=== PATIENT | male | born 1965 | race African-American/Black ===

== ENCOUNTER 2017-12-01 14:05 | Observation (INO) ==
[2017-12-01] MEDS ORDERED: 0.9 % Sodium Chloride 1,000 ML IVC ONE (14:12)
--- NOTE | 2017-12-01 14:14 | Emergency Department Note ---
Disposition Clinical Impression: Acute renal insufficiency, Generalized weakness, Near syncope Hypotension Qualifiers: Hypotension type: hypotension due to drug Qualified Code(s): I95.2 - Hypotension due to drugs Disposition: Admitted As Inpatient Condition: Fair Weakness HPI - General Chief complaint: ED Dizziness Stated complaint: dizziness Time Seen by Provider: 12/01/17 14:06 Source: patient, EMS Mode of arrival: EMS Limitations: no limitations Nursing Notes Reviewed: Yes Vital Signs Reviewed: Yes - History of Present Illness HPI Narrative: Patient has been sent to emergency Department from his heading up machine operator's office, Dr. Adams. Dr. Adams had called to advise that this patient's blood pressure was low and was 60/40 in the office. He reported he had a syncopal episode yesterday without injury. An office EKG was performed which showed no change from his previous LVH. This is per verbal report of Dr. Adams. States he had no symptoms other than weakness and he needed to come here for further evaluation and possible IV fluids. Patient arrives to our emergency department indicating that he was told that his blood pressure was low. He does report dizziness with sitting or standing. He was denying current diaphoresis or shortness of breath. He did say that he's been having chest pain "when I exert myself" for the last 3 -4 days. This pain will radiate to his back. He has not had a feeling of palpitations. He does get sweaty and short of breath when he has the chest pain. He denies nausea, vomiting, diarrhea or any bloody or black stool. He states he has been having chronic abdominal trouble for more than 6 months with no change now. He relates he did have a decrease in blood pressure medicines a month ago because of lower blood pressure. He is not sure what changes were made to his medicines. He also indicates that he is admitted to [facility] about 3 weeks ago for pneumonia and discharged on November 16. He is currently not on an antibiotic and he denies current cough, fevers or chills. He has not been having orthopnea or leg swelling. He states he feels well but weak. Pt Subjective Complaint: generalized weakness/fatigue, other (Chest pain) Onset (ago): week(s) Duration: intermittent, gradually worsening Location: generalized Migration: none Pain Severity: moderate If pain, quality: aching Improves with: rest Worsens with: movement, exertion Associated symptoms: Reports: chest pain, diaphoresis, loss of appetite, shortness of breath, syncope. Denies: confusion, dark stools, dysuria, easy bruising, fever/chills, headaches, nausea/vomiting, myalgias, rash - Related Data Home Medications Medication Instructions Recorded Confirmed ALPRAZolam [Xanax 0.5 MG Tablet] 0.5 mg PO BID PRN 09/11/16 08/11/17 Allopurinol [Zyloprim] 100 mg PO DAILY 09/11/16 08/11/17 Aspirin [Ecotrin] 325 mg PO DAILY 09/11/16 08/11/17 Furosemide [Lasix] 80 mg PO BID 09/11/16 08/11/17 Pravastatin Sodium [Pravachol] 40 mg PO HS 09/11/16 08/11/17 Tamsulosin HCl [Flomax] 0.4 mg PO DAILY 09/11/16 08/11/17 Metoprolol [Lopressor] 50 mg PO BID 07/01/17 08/11/17 Insulin Glargine,Hum.rec.anlog 40 units SQ HS 07/02/17 08/11/17 [Lantus Solostar] Insulin ASPART [NovoLOG] 0 unit SQ TID PRN 08/11/17 08/11/17 Previous Rx's Medication Instructions Recorded cloNIDine HCl [Clonidine HCl] 0.2 mg PO BID #60 tab 09/12/16 Potassium Chloride [K-Tab ER] 20 meq PO BID #0 07/04/17 Sennosides/Docusate Sodium [Senna 1 each PO BID #60 tab 07/04/17 Plus] amLODIPine [Norvasc] 10 mg PO DAILY tab 07/06/17 Docusate [Colace] 100 mg PO BID #30 capsule 07/13/17 Oxycodone HCl/Acetaminophen 1 each PO Q6H PRN #20 07/13/17 [Percocet 10-325 mg Tablet] Minoxidil 5 mg PO DAILY #60 tab 08/12/17 Polyethylene Glycol 3350 [MiraLAX] 17 gm PO DAILY #30 powd.pack 08/12/17 Allergies Allergy/AdvReac Type Severity Reaction Status Date / Time No Known Allergies Allergy Verified 07/13/17 14:19 All systems ED: reviewed and negative except as stated. Past Medical History - Past Medical History Attestation: Yes The following information was validated with the patient. Source: patient, old records reviewed, obtained from family, nursing notes reviewed Medical history: Reports: CHF, CVA, diabetes, hypertension, renal disease Surgical history: Reports: no surgical history Psychiatric history: Reports: depression - Social History Smoking Status: Never smoker Smokeless Tobacco Status: No Alcohol use: Reports: none Drug use: Reports: none Physical Exam - General Limitations: no limitations General appearance: alert, in no apparent distress - Head Head exam: atraumatic, normocephalic, normal inspection - Eye Eye exam: Present: normal appearance, PERRL, EOMI. Absent: scleral icterus, conjunctival injection - ENT ENT exam: normal exam, normal oropharynx, mucous membranes moist - Neck Neck exam: Present: normal inspection, full ROM, trachea midline - Chest Chest inspection: Present: normal inspection, symmetric chest wall rise - Respiratory Respiratory exam: Present: normal lung sounds bilaterally. Absent: respiratory distress, wheezes, prolonged expiratory phase - Cardiovascular Cardiovascular exam: Present: regular rate, normal rhythm, normal heart sounds. Absent: tachycardia - Abdominal Exam Abdominal exam: Present: soft, Non-Tender, normal bowel sounds. Absent: tenderness, distention, guarding, rebound, rigidity - Extremities Exam Extremities exam: Present: normal inspection, full ROM, normal capillary refill. Absent: tenderness, pedal edema, calf tenderness - Expanded Lower Extremity Exam Neurovascular/Tendon exam: Present: normal capillary refill. Absent: motor deficit, sensory deficit, tendon deficit Gait: not tested/not observed - Back Exam Back exam: Present: normal inspection, full ROM. Absent: tenderness - Neurological Exam Neurological exam: Present: alert, oriented X3 - Psychiatric Psychiatric exam: Present: normal affect, normal mood. Absent: agitated, anxious - Skin Skin exam: Present: warm, dry, intact, normal color. Absent: cyanosis, diaphoresis, pallor Course Course Narrative: 1500: Care is discussed with the patient and friend in the room. Appears he has some acute on chronic renal insufficiency and this is likely migraine with his multiple medicines to give him his lassitude, weakness and hypotension. His EKG is at baseline and his troponin is negative. He does not have evidence for other metabolic derangement or anemia. I discussed care with Dr. Mendez who feels comfortable with observation on the floor and continuation some IV fluids. We're still clarifying his medicines and Dr. Mendez will order medications upon admission. Verbal orders have been obtained for the patient's observation. Vital Signs Temperature 97.8 F 12/01/17 14:08 Pulse Rate 89 12/01/17 14:08 Respiratory Rate 18 12/01/17 14:08 Blood Pressure 89/53 12/01/17 14:08 O2 Sat by Pulse Oximetry 99 12/01/17 14:08 Temperature 97.8 F 12/01/17 14:08 Pulse Rate 89 12/01/17 14:08 Respiratory Rate 18 12/01/17 14:08 Blood Pressure 89/53 12/01/17 14:08 O2 Sat by Pulse Oximetry 99 12/01/17 14:08 Oxygen Delivery Oxygen Delivery Room Air Weakness - Differential Diagnosis Differential Diagnosis: Likely: acute myocardial infarction, anemia, hypoglycemia, dehydration, medication effect, metabolic - Medical Records Medical records reviewed: Yes I reviewed the patient's medical records. - Lab Data Lab results reviewed: Yes I reviewed the patient's lab results. Result diagrams: 12/01/17 14:25 12/01/17 14:25 Lab Results 12/01/17 12/01/17 12/01/17 Range/Units 14:25 14:25 14:25 WBC 7.6 (4.3-11.1) K/mcL RBC 4.19 (4.19-5.50) M/mcL Hgb 11.7 L (12.9-16.9) g/dL Hct 33.9 L (37.5-50.1) % MCV 80.9 L (83.0-100.0) fL MCH 27.9 L (28.0-33.3) pg MCHC 34.5 (31.6-35.5) g/dL RDW 14.6 H (11.5-14.5) % Plt Count 226 (140-400) K/mcL MPV 11.1 (9.4-12.4) fL Immature Gran % 0.3 (0-4) % Seg Neutrophils % 51.7 % Lymphocytes % 37.6 % Monocytes % 7.5 % Eosinophils % 2.1 % Basophils % 0.8 % Neutrophils # 3.9 (1.6-8.9) K/mcL Lymphocytes # 2.9 (0.6-4.6) K/mcL Monocytes # 0.6 (0.0-1.3) K/mcL Eosinophils # 0.2 (0.0-0.6) K/mcL Basophils # 0.1 (0.0-0.2) K/mcL PT 12.0 (9.4-12.1) Seconds INR 1.1 Sodium 139 (136-145) mEq/L Potassium 3.6 (3.5-5.1) mEq/L Chloride 105 (98-107) mEq/L Carbon Dioxide 27 (23-29) mEq/L BUN 26 H (6-20) mg/dL Creatinine 1.95 H (0.70-1.30) mg/dL Est GFR ( Amer) 44 L (> 60) Est GFR (Non-Af Amer) 37 L (> 60) BUN/Creatinine Ratio 13 (6-26) Glucose 223 H (70-105) mg/dL Calculated Osmolality 300 (280-300) Calcium 9.3 (8.6-10.3) mg/dL Total Bilirubin 0.4 (0.3-1.0) mg/dL AST 14 (13-39) Units/L ALT 22 (7-52) Units/L Alkaline Phosphatase 74 (34-104) Units/L Troponin I (< 0.04) ng/mL B-Natriuretic Peptide (Less than 100) pg/mL Serum Total Protein 6.1 L (6.4-8.9) g/dL Albumin 3.6 (3.5-5.7) g/dL Globulin 2.5 (2.4-3.5) g/dL Albumin/Globulin Ratio 1.4 (1.1-2.2) 12/01/17 12/01/17 Range/Units 14:25 14:25 WBC (4.3-11.1) K/mcL RBC (4.19-5.50) M/mcL Hgb (12.9-16.9) g/dL Hct (37.5-50.1) % MCV (83.0-100.0) fL MCH (28.0-33.3) pg MCHC (31.6-35.5) g/dL RDW (11.5-14.5) % Plt Count (140-400) K/mcL MPV (9.4-12.4) fL Immature Gran % (0-4) % Seg Neutrophils % % Lymphocytes % % Monocytes % % Eosinophils % % Basophils % % Neutrophils # (1.6-8.9) K/mcL Lymphocytes # (0.6-4.6) K/mcL Monocytes # (0.0-1.3) K/mcL Eosinophils # (0.0-0.6) K/mcL Basophils # (0.0-0.2) K/mcL PT (9.4-12.1) Seconds INR Sodium (136-145) mEq/L Potassium (3.5-5.1) mEq/L Chloride (98-107) mEq/L Carbon Dioxide (23-29) mEq/L BUN (6-20) mg/dL Creatinine (0.70-1.30) mg/dL Est GFR ( Amer) (> 60) Est GFR (Non-Af Amer) (> 60) BUN/Creatinine Ratio (6-26) Glucose (70-105) mg/dL Calculated Osmolality (280-300) Calcium (8.6-10.3) mg/dL Total Bilirubin (0.3-1.0) mg/dL AST (13-39) Units/L ALT (7-52) Units/L Alkaline Phosphatase (34-104) Units/L Troponin I < 0.03 (< 0.04) ng/mL B-Natriuretic Peptide 12 (Less than 100) pg/mL Serum Total Protein (6.4-8.9) g/dL Albumin (3.5-5.7) g/dL Globulin (2.4-3.5) g/dL Albumin/Globulin Ratio (1.1-2.2) - Radiology Data Radiology results reviewed: Yes I reviewed the patient's radiology results. Single view chest x-ray is performed. This does not demonstrate evidence for infiltrate, effusion, pneumothorax, foreign body or heart failure. The cardiac silhouette is normal. I do not see abnormality to the osseous structures of the chest. This is on my interpretation. - EKG Data EKG attestation: Yes I reviewed and interpreted this EKG. EKG shows normal: sinus rhythm, axis, intervals, QRS complexes, ST-T waves Rate: normal (86) Voltage: c/w LVH Interpretation: no acute changes, LVH
[2017-12-01] MEDS ORDERED: 0.9 % Sodium Chloride 1,000 ML IVC SCH ×2 (14:15→15:10)
[2017-12-01 14:34] LABS: Basophils # 0.1 K/mcL (0.0-0.2); Basophils % 0.8 %; Eosinophils # 0.2 K/mcL (0.0-0.6); Eosinophils % 2.1 %; Hematocrit 33.9 % (37.5-50.1); Hemoglobin 11.7 g/dL (12.9-16.9); Immature Granulocytes % 0.3 % (0-4); Lymphocytes # 2.9 K/mcL (0.6-4.6); Lymphocytes % 37.6 %; Mean Corpuscular HGB Conc 34.5 g/dL (31.6-35.5); Mean Corpuscular Hemoglobin 27.9 pg (28.0-33.3); Mean Corpuscular Volume 80.9 fL (83.0-100.0); Mean Platelet Volume 11.1 fL (9.4-12.4); Monocytes # 0.6 K/mcL (0.0-1.3); Monocytes % 7.5 %; Neutrophils # 3.9 K/mcL (1.6-8.9); Platelet Count 226 K/mcL (140-400); Red Blood Count 4.19 M/mcL (4.19-5.50); Red Cell Distribution Width 14.6 % (11.5-14.5); Segmented Neutrophils % 51.7 %
[2017-12-01 14:38] LABS: INR 1.1
[2017-12-01 14:48] LABS: Albumin 3.6 g/dL (3.5-5.7); Albumin/Globulin Ratio 1.4 (1.1-2.2); Bilirubin,Total 0.4 mg/dL (0.3-1.0); Calcium 9.3 mg/dL (8.6-10.3); Globulin 2.5 g/dL (2.4-3.5); Potassium 3.6 mEq/L (3.5-5.1); Total Protein 6.1 g/dL (6.4-8.9)
[2017-12-01] MEDS ORDERED: *HR* Dextrose 50 % in Water (Syg) 50 ML SYRINGE IVP PRN (15:10)
[2017-12-01] MEDS ORDERED: Naloxone 0.4 MG/ML INJ IVP PRN (15:10)
[2017-12-01] MEDS ORDERED: D5% in Water 1,000 ML IVC PRN (15:10)
[2017-12-01] MEDS ORDERED: Dextrose Gel 15 GM/37.5 ML TUBE PO PRN ×2 (15:10)
[2017-12-01] MEDS: Insulin LISPRO 300 UNITS/3 ML VIAL SQ SCH (17:30)
--- NOTE | 2017-12-01 20:18 | Internal Med History&Physical ---
Date of Encounter: 12/01/17 Time of Encounter: 19:30 Assessment and Plan (1) Hypotension Current visit: Yes Status: Acute Probably secondary to medication use with superimposed volume depletion. He has been ordered IV fluids and withholding all antihypertensive medications. Will check orthostatic vital signs in a.m. Qualifiers: Hypotension type: hypotension due to drug Qualified Code(s): I95.2 - Hypotension due to drugs (2) Weight loss Current visit: Yes Status: Acute Etiology not obvious. Will order hemoglobin A1c TSH, CEA and CA-19-9 (3) Microcytic anemia Current visit: Yes Status: Acute We will order anemia testing in a.m. Suspect iron deficiency (4) Uncontrolled diabetes mellitus Current visit: No Status: Chronic Hemoglobin A1c was 11.4% on 08/11/2017. We will recheck in a.m. Qualifiers: Diabetes mellitus type: type 2 Diabetes mellitus complication status: with kidney complications Diabetes mellitus complication detail: with chronic kidney disease Diabetes mellitus intermediate insulin use: with intermediate use Chronic kidney disease stage: stage 3 (moderate) Qualified Code(s): E11.22 - Type 2 diabetes mellitus with diabetic chronic kidney disease; E11.65 - Type 2 diabetes mellitus with hyperglycemia; Z79.4 - intermodal truck driver (current) use of insulin ; E11.65 - Type 2 diabetes mellitus with hyperglycemia; E11.65 - Type 2 diabetes mellitus with hyperglycemia; E11.65 - Type 2 diabetes mellitus with hyperglycemia; N18.3 - Chronic kidney disease, stage 3 (moderate); N18.3 - Chronic kidney disease, stage 3 (moderate); Z79.4 - care home (current) use of insulin; Z79.4 - intermodal truck driver (current) use of insulin; Z79.4 - intermodal truck driver (current ) use of insulin (5) Hypertension Current visit: No Status: Chronic Will hold antihypertensive medications secondary to low blood pressure at present. Qualifiers: Hypertension type: essential hypertension Qualified Code(s): I10 - Essential (primary) hypertension (6) CKD (chronic kidney disease) stage 3, GFR 30-59 ml/min Current visit: Yes Status: Acute Will give IV fluids and withholding hypertensive medications including diuretics. Recheck labs in a.m. Internal Medicine - H&P: HPI Chief complaint: Hypotension Admitted From: Emergency Dept Plans for Post Hospital Care: Home History of present illness: Mr. Schrader is a 52 year old male who was sent to emergency room from Dr. Adams's office after he had blood pressure 60/40 at the office visit. He had a syncopal episode yesterday without injury. He has had orthostatic symptoms on arising from a seated position for approximately 2 weeks. He was evaluated in emergency room and found to have microcytic anemia and azotemia with hypotension. He was admitted to [facility] floor for ongoing care needs. Cardiovascular history is significant for hypertension. He denies VT and had a stress test in 2016. He does not recall when his last heart catheter was done. He claims a diagnosis of heart failure. BN peptide in emergency room was 12. An echocardiogram 07/05/2017 showed LVEF 65%. There was concentric LVH with the interventricular septum and posterior wall thickness measurements of 1.60 and 1.50 cm respectively. There was mild to moderate mitral regurgitation and trace tricuspid regurgitation. The E/A ratio was 0.8. He states he gets occasional chest pain on exertion. He denies DVT or pulmonary embolus. Past Med Surg Social Fam HX - Past Medical History Medical history: CHF, CVA, diabetes, hypertension, renal disease Psychiatric history: depression - Past Surgical History Surgical History: no surgical history - Social History Smoking Status: Never smoker Smokeless Tobacco Status: No Alcohol use: none Drug use: none - Family History Maternal Grandfather Living Status: Hx Family Cancer: Yes (Mouth cancer) Hx Family Endocrine Disorder: Yes (DM) Father Living Status: Hx Family Cardiac Disorders: Yes (HTN) Hx Family Endocrine Disorder: Yes (DM) Internal Medicine - H&P: Meds ALPRAZolam [Xanax 0.5 MG Tablet] 0.5 mg PO HS 12/01/17 [History] Allopurinol [Zyloprim 100 MG] 100 mg PO DAILY 12/01/17 [History] Aromatic Cascara Fluid Extract [Cascara Sagrada] 450 mg PO HS PRN 12/01/17 [ History] Aspirin [Lo-Dose Aspirin EC] 81 mg PO DAILY 12/01/17 [History] Atorvastatin [Lipitor] 40 mg PO HS 12/01/17 [History] Bisacodyl [Dulcolax] 10 mg RC DAILY PRN 12/01/17 [History] Carvedilol [Coreg] 25 mg PO BID 12/01/17 [History] Furosemide [Lasix] 40 mg PO BID 12/01/17 [History] HydrOXYzine Pamoate [Vistaril] 25 - 50 mg PO Q8H PRN 12/01/17 [History] Insulin ASPART [NovoLOG] 10 unit SQ HS 12/01/17 [History] Insulin ASPART [NovoLOG] 10 unit SQ TIDWM 12/01/17 [History] Insulin Glargine [Lantus] 10 unit SQ HS 12/01/17 [History] Lisinopril [Zestril] 40 mg PO DAILY 12/01/17 [History] Magnesium Citrate [Citroma] 30 ml PO DAILY 12/01/17 [History] Metoclopramide [Reglan] 5 mg PO TID 12/01/17 [History] Minoxidil 2.5 mg PO BID 12/01/17 [History] Ondansetron HCl [Zofran] 4 mg PO Q8H PRN 12/01/17 [History] OxyCODONE/APAP 10/325 [Percocet 10/325 MG] 1 each PO Q6HR PRN 12/01/17 [History] Potassium Chloride [K-Tab ER] 40 meq PO BID 12/01/17 [History] Sucralfate [Carafate] 1 gm PO TID 12/01/17 [History] Tamsulosin [Flomax] 0.4 mg PO BID 12/01/17 [History] amLODIPine [Norvasc] 5 mg PO DAILY 12/01/17 [History] cloNIDine HCl [Clonidine HCl] 0.2 mg PO BID 12/01/17 [History] metFORMIN [Glucophage] 500 mg PO BIDWM 12/01/17 [History] 3 Allergy/AdvReac Type Severity Reaction Status Date / Time No Known Allergies Allergy Verified 07/13/17 14:19 All Systems PM: A 10-system review of systems was performed and is negative for pertinent findings except as documented above in the HPI. Review of systems: Gen.: His weight has decreased from 126.099 kg on 09/11/2016 to 77.564 kg on admission now. He states the weight loss was unintentional. Cardiovascular: As per history of present illness Respiratory: He smoked from age [age] up to 2 packs per day. He has not had PFTs and does not use home oxygen. Chest CT 08/10/2017 showed no acute pulmonary abnormality. GI: He had cholecystectomy July 2017. He reports diarrhea present for approximately 3 months. He has been diagnosed with diabetic gastroparesis a few weeks ago at [facility]. He reports no significant pathology other than gastroparesis was diagnosed on EGD at [facility]. Denies disorders of his liver or excuse pancreas. He reports colonoscopy September [address] October 2017 showed no significant pathology. His been diagnosed with diabetic gastroparesis. : He has chronic kidney disease and follows with Dr. Alonso. He has BPH. He denies other kidney or bladder disorders Neurologic: He claims he had stroke at age 40 but there is no permanent neurologic deficit. He denies seizures or other neurologic disorders. Endocrine: He was diagnosed with DM2 approximately age 45. Hemoglobin A1c was 11.4% on 08/11/2017. He does not check his blood sugars regularly at home. He has history of hyperlipidemia. He denies known thyroid disease Hematology/oncology: He had microcytic anemia for over a year on CBCs but he was unaware of this. He states he has used aspirin for approximately 5 years. He denies known internal malignancies. Psychiatric: He has history of anxiety but denies depression or other mental health issues Muscle skeletal: He has gout but denies other bone joint or muscle disorders. - Constitutional Vitals: Temp Pulse Resp BP Pulse Ox 97.6 F 90 17 92/65 100 12/01/17 15:48 12/01/17 15:48 12/01/17 15:48 12/01/17 15:48 12/01/17 15:48 Exam: Gen.: He is well-developed and well-nourished male lying in bed who appears in no severe distress at present time HEENT: Head is atraumatic and normocephalic. Eyes: EOMI. There is no sclerae icterus. Mouth: Mucosa is moist. Neck: Supple and nontender. There is no thyromegaly noted. Heart: Regular without murmurs gallops or ectopics Lungs: No wheezes or crackles are heard. Abdomen: He has bowel sounds present. There is mild tenderness right upper quadrant to deep palpation. No masses or guarding are noted. Extremities: There is no cyanosis edema or clubbing noted. Dorsalis pedis and posttibial pulses are 1-2 over 2 bilaterally. Neurologic: Mental status: He is talkative and a good historian. Cranial nerves : Smile is symmetric. Forehead wrinkles bilaterally. Tongue protrudes midline. EOMI. Motor: There is no pronator drift. Cerebellar: Finger to nose is intact bilaterally. Skin: Warm and dry Internal Med - H&P Results - Labs CBC & Chem 7: 12/01/17 14:25 12/01/17 14:25
[2017-12-01] MEDS: *HR* OxyCODONE/APAP 5/325 TABLET PO PRN (20:57)
[2017-12-01] MEDS: 0.45 % Sodium Chloride w/KCl 20 MEQ/1,000 ML MLS IVC SCH (21:01)
[2017-12-02] MEDS: *HR* OxyCODONE/APAP 5/325 TABLET PO PRN ×2 (02:21→08:10)
[2017-12-02 05:16] LABS: Basophils % 0.5 %; Eosinophils # 0.2 K/mcL (0.0-0.6); Eosinophils % 2.4 %; Hematocrit 31.5 % (37.5-50.1); Hemoglobin 10.8 g/dL (12.9-16.9); Immature Granulocytes % 0.3 % (0-4); Lymphocytes # 2.5 K/mcL (0.6-4.6); Lymphocytes % 33.2 %; Mean Corpuscular HGB Conc 34.3 g/dL (31.6-35.5); Mean Corpuscular Hemoglobin 27.6 pg (28.0-33.3); Mean Corpuscular Volume 80.6 fL (83.0-100.0); Mean Platelet Volume 11.8 fL (9.4-12.4); Monocytes # 0.5 K/mcL (0.0-1.3); Monocytes % 7.1 %; Neutrophils # 4.2 K/mcL (1.6-8.9); Platelet Count 223 K/mcL (140-400); Red Blood Count 3.91 M/mcL (4.19-5.50); Red Cell Distribution Width 14.6 % (11.5-14.5); Segmented Neutrophils % 56.5 %
[2017-12-02 05:34] LABS: Chol/HDL Ratio 2.7 (0-4.9); Magnesium 1.4 mg/dL (1.6-2.6); Uric Acid 6.9 mg/dL (2.3-7.6)
[2017-12-02 05:49] LABS: Thyroid Stimulating Hormone 0.393 mcIU/mL (0.340-5.600)
[2017-12-02] MEDS: Insulin LISPRO 300 UNITS/3 ML VIAL SQ SCH ×3 (08:04→16:37)
[2017-12-02] MEDS: 0.45 % Sodium Chloride w/KCl 20 MEQ/1,000 ML MLS IVC SCH (08:11)
[2017-12-02] MEDS: Simethicone 80 MG TAB.CHEW PO PRN ×3 (08:41→21:12)
[2017-12-02] MEDS ORDERED: Ondansetron 4 MG/2 ML VIAL IVP PRN (09:53)
--- NOTE | 2017-12-02 09:59 | Internal Med Progress Note ---
Date of Encounter: 12/02/17 Time of Encounter: 09:50 - Assessment and plan (1) Hypotension Current Visit: Yes Status: Acute Assessment and plan: December 02. Improved. Continue IV fluids and withholding antihypertensives. Qualifiers: Hypotension type: hypotension due to drug Qualified Code(s): I95.2 - Hypotension due to drugs (2) Weight loss Current Visit: Yes Status: Acute Assessment and plan: December 02. TSH was normal. Abdominal CT of 11/09/[address] on 2016 reviewed. No pathology indicating malignancy was seen. CA 19-9 and CEA have been ordered. (3) Microcytic anemia Current Visit: Yes Status: Acute Assessment and plan: December 02. Anemia testing pending. (4) Uncontrolled diabetes mellitus Current Visit: No Status: Chronic Assessment and plan: December 02. Hemoglobin A1c pending. 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 [facility] use Chronic kidney disease stage: stage 3 (moderate) Qualified Code(s): E11.22 - Type 2 diabetes mellitus with diabetic chronic kidney disease; E11.65 - Type 2 diabetes mellitus with hyperglycemia; Z79.4 - shelter (current) use of insulin ; E11.65 - Type 2 diabetes mellitus with hyperglycemia; E11.65 - Type 2 diabetes mellitus with hyperglycemia; E11.65 - Type 2 diabetes mellitus with hyperglycemia; N18.3 - Chronic kidney disease, stage 3 (moderate); N18.3 - Chronic kidney disease, stage 3 (moderate); Z79.4 - shelter (current) use of insulin; 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 Blood pressure now normal. Continue to withhold antihypertensives. Qualifiers: Hypertension type: essential hypertension Qualified Code(s): I10 - Essential (primary) hypertension (6) CKD (chronic kidney disease) stage 3, GFR 30-59 ml/min Current Visit: Yes Status: Acute Assessment and plan: December 02. Continue IV fluids and monitor renal indices. (7) Nausea Current Visit: Yes Status: Acute Assessment and plan: December 02. We will restart scheduled home dose of Reglan and give Zofran when necessary. (8) Hypomagnesemia Current Visit: Yes Status: Acute Assessment and plan: December 02. Will give magnesium oxide supplement and monitor labs. - Subjective Interval history: December 02. He complains of nausea but denies vomiting. - Constitutional Vitals: Temp Pulse Resp BP Pulse Ox 98.3 F 97 12 125/86 97 12/02/17 05:07 12/02/17 05:07 12/02/17 05:07 12/02/17 05:07 12/02/17 05:07 Exam: He is lying in bed and appears to be in no acute distress. His affect is overall cheerful. I reviewed his medications and lab results. Internal Medicine: Result - Labs CBC & Chem 7: 12/02/17 04:15 12/01/17 14:25 Labs: Short CBC 12/02/17 Range/Units 04:15 WBC 7.4 (4.3-11.1) K/mcL Hgb 10.8 L (12.9-16.9) g/dL Hct 31.5 L (37.5-50.1) % Plt Count 223 (140-400) K/mcL Neutrophils # 4.2 (1.6-8.9) K/mcL - ABG Interpretation ABG results: PT/INR, D-dimer PT 12.0 Seconds (9.4-12.1) 12/01/17 14:25 Consult Discharge Plan - Plan Referrals: Teresa Billings MD [Primary Care Provider] - 1 week
[2017-12-02] MEDS ORDERED: Nitroglycerin 0.4 MG TAB.SUBL SL ONE (10:40)
[2017-12-02] MEDS ORDERED: Nitroglycerin 0.4 MG TAB.SUBL SL PRN (10:44)
[2017-12-02] MEDS: Metoclopramide 10 MG/10 ML UD.LIQ PO SCH ×3 (11:02→21:12)
[2017-12-02] MEDS: Magnesium Oxide 400 MG TABLET PO SCH ×2 (11:02→21:12)
[2017-12-02 11:08] LABS: Folate 5.3 ng/mL (3.0-16.0)
[2017-12-02 11:17] LABS: Calcium 9.1 mg/dL (8.6-10.3); Potassium 3.7 mEq/L (3.5-5.1)
--- NOTE | 2017-12-02 12:12 | Electrocardiograph Report ---
[address] [place] [id number] Test Date: 2017-12-01 Pat Name: Steven Schrader Department: 9201 Room: [facility] Gender: M Telemetry Registered Nurse: [id number] : 1965 Requested By: Abdoul Odonnell Order Number: [id number] Reading MD: Nomi Torres DO Measurements Intervals [address] Rate: 86 P: 8 MD: 179 QRS: -18 QRSD: 96 T: 137 QT: 396 QTc: 440 Interpretive Statements SINUS RHYTHM LEFT VENTRICULAR HYPERTROPHY AND ST-T CHANGES POSSIBLE INFERIOR MYOCARDIAL INFARCTION, AGE UNDETERMINED Electronically Signed On 12-02-2017 12:10:22 EST by Nomi Torres DO
[2017-12-02 16:33] LABS: Hemoglobin A1C 8.8 %
--- NOTE | 2017-12-02 16:48 | Electrocardiograph Report ---
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
[2017-12-03 05:52] LABS: Basophils % 0.6 %; Eosinophils # 0.2 K/mcL (0.0-0.6); Eosinophils % 2.5 %; Hematocrit 35.2 % (37.5-50.1); Hemoglobin 12.1 g/dL (12.9-16.9); Immature Granulocytes % 0.2 % (0-4); Lymphocytes # 1.8 K/mcL (0.6-4.6); Lymphocytes % 28.2 %; Mean Corpuscular HGB Conc 34.4 g/dL (31.6-35.5); Mean Corpuscular Hemoglobin 27.8 pg (28.0-33.3); Mean Corpuscular Volume 80.9 fL (83.0-100.0); Mean Platelet Volume 11.3 fL (9.4-12.4); Monocytes # 0.5 K/mcL (0.0-1.3); Monocytes % 8.1 %; Neutrophils # 3.9 K/mcL (1.6-8.9); Platelet Count 217 K/mcL (140-400); Red Blood Count 4.35 M/mcL (4.19-5.50); Red Cell Distribution Width 14.2 % (11.5-14.5); Segmented Neutrophils % 60.4 %
[2017-12-03 06:10] LABS: BUN/Creatinine Ratio 12 (6-26); Blood Urea Nitrogen 12 mg/dL (6-20); Calcium 9.5 mg/dL (8.6-10.3); Carbon Dioxide 25 mEq/L (23-29); Chloride 105 mEq/L (98-107); Glucose 160 mg/dL (70-105); Magnesium 1.8 mg/dL (1.6-2.6); Osmolality,Calculated 291 (280-300); Potassium 3.4 mEq/L (3.5-5.1); Sodium 139 mEq/L (136-145); eGFR For Non-African Americans > 60 (> 60)
[2017-12-03 06:49] VITALS: BP 190/118
[2017-12-03] MEDS: Metoclopramide 10 MG/10 ML UD.LIQ PO SCH (08:00)
[2017-12-03] MEDS: Magnesium Oxide 400 MG TABLET PO SCH (08:01)
[2017-12-03] MEDS: Insulin LISPRO 300 UNITS/3 ML VIAL SQ SCH (08:01)
--- NOTE | 2017-12-03 10:08 | Discharge Summary ---
Date of Encounter: 12/03/17 Time of Encounter: 09:58 - Discharge Diagnosis (1) Hypotension Priority: Primary Status: Resolved Qualifiers: Hypotension type: hypotension due to drug Qualified Code(s): I95.2 - Hypotension due to drugs (2) Weight loss Priority: Secondary Status: Acute (3) Microcytic anemia Priority: Secondary Status: Acute (4) Uncontrolled diabetes mellitus Priority: Secondary Status: Chronic Qualifiers: Diabetes mellitus type: type 2 Diabetes mellitus complication status: with kidney complications Diabetes mellitus complication detail: with chronic kidney disease Diabetes mellitus intermodal owner operator truck driver insulin use: with intermodal owner operator truck driver use Chronic kidney disease stage: stage 3 (moderate) Qualified Code(s): E11.22 - Type 2 diabetes mellitus with diabetic chronic kidney disease; E11.65 - Type 2 diabetes mellitus with hyperglycemia; Z79.4 - FPC (current) use of insulin ; E11.65 - Type 2 diabetes mellitus with hyperglycemia; E11.65 - Type 2 diabetes mellitus with hyperglycemia; E11.65 - Type 2 diabetes mellitus with hyperglycemia; N18.3 - Chronic kidney disease, stage 3 (moderate); N18.3 - Chronic kidney disease, stage 3 (moderate); Z79.4 - FPC (current) use of insulin; Z79.4 - FPC (current) use of insulin; Z79.4 - FPC (current ) use of insulin (5) Hypertension Priority: Secondary Status: Chronic Qualifiers: Hypertension type: essential hypertension Qualified Code(s): I10 - Essential (primary) hypertension (6) CKD (chronic kidney disease) stage 3, GFR 30-59 ml/min Priority: Secondary Status: Acute (7) Nausea Priority: Secondary Status: Acute (8) Hypomagnesemia Priority: Secondary Status: Resolved - Discharge Medications Home Medications: ALPRAZolam [Xanax 0.5 MG Tablet] 0.5 mg PO HS 12/01/17 [History] Allopurinol [Zyloprim 100 MG] 100 mg PO DAILY 12/01/17 [History] Aromatic Cascara Fluid Extract [Cascara [place]] 450 mg PO HS PRN 12/01/17 [ History] Atorvastatin [Lipitor] 40 mg PO HS 12/01/17 [History] Bisacodyl [Dulcolax] 10 mg RC DAILY PRN 12/01/17 [History] Carvedilol [Coreg] 25 mg PO BID 12/01/17 [History] HydrOXYzine Pamoate [Vistaril] 25 - 50 mg PO Q8H PRN 12/01/17 [History] Insulin ASPART [NovoLOG] 10 unit SQ HS 12/01/17 [History] Insulin ASPART [NovoLOG] 10 unit SQ TIDWM 12/01/17 [History] Insulin Glargine [Lantus] 10 unit SQ HS 12/01/17 [History] Magnesium Citrate [Citroma] 30 ml PO DAILY 12/01/17 [History] Metoclopramide [Reglan] 5 mg PO TID 12/01/17 [History] Minoxidil 2.5 mg PO BID 12/01/17 [History] Ondansetron HCl [Zofran] 4 mg PO Q8H PRN 12/01/17 [History] OxyCODONE/APAP 10/325 [Percocet 10/325 MG] 1 each PO Q6HR PRN 12/01/17 [History] Sucralfate [Carafate] 1 gm PO TID 12/01/17 [History] Tamsulosin [Flomax] 0.4 mg PO BID 12/01/17 [History] amLODIPine [Norvasc] 5 mg PO DAILY 12/01/17 [History] cloNIDine HCl [Clonidine HCl] 0.2 mg PO BID 12/01/17 [History] metFORMIN [Glucophage] 500 mg PO BIDWM 12/01/17 [History] Aspirin [Lo-Dose Aspirin EC] 81 mg PO Q48H #0 12/03/17 [Rx] Furosemide [Lasix] 20 mg PO DAILY #0 12/03/17 [Rx] Potassium Chloride [K-Tab ER] 20 meq PO BID #0 12/03/17 [Rx] Allergies/Adverse Reactions: 3 Allergy/AdvReac Type Severity Reaction Status Date / Time No Known Allergies Allergy Verified 07/13/17 14:19 Procedures/tests Complete & Pending: Procedures Performed prior 72 hours Category Date Time Status ECG 12 lead ECG [ECG] Stat Y 12/02/17 10:58 Completed Date of admission: 12/01/17 15:07 Primary care physician: Teresa Billings Consults: 12/01/17 17:57 Consult to Nutrition [CONS] Routine Comment: Consulting Provider: NUTRITION Reason for Dietary Consult: MST Score Consult to Cloud Administrator [CONS] Routine Reason for SW Consult: would like to look into SB program - Patient Status Disposition: Home, Self-Care Condition: Fair Functional capacity at discharge: independent ambulation Overall status at discharge: patient is progressing back to baseline - Discharge Instructions Follow Up With: Teresa Billings MD [Primary Care Provider] - 1 week - Diet and Activity Activity: resume usual activities as tolerated Diet: advance to your usual diet Hospital course: Mr. Schrader is a 52 year old male who was sent to emergency room from Dr. Adams's office after he had blood pressure 60/40 at the office visit. He had a syncopal episode yesterday without injury. He has had orthostatic symptoms on arising from a seated position for approximately 2 weeks. He was evaluated in emergency room and found to have microcytic anemia and azotemia with hypotension. He was admitted to [facility] for ongoing care needs. Initial orders were written by the emergency room physician. I saw him on December 01 and performed the history and physical. His antihypertensive medications were held and he was given IV fluids. His azotemia resolved with BUN and creatinine decreasing to 12 and 0.98 respectively by day of discharge with estimated GFR greater than 60. Magnesium returned low at 1.4. He was given supplemental magnesium and his level was normal at 1.8 by day of discharge. Evaluation for weight loss showed TSH normal at 0.393. CA-19-9 was normal at 1 and CEA normal at 2.0. Hemoglobin A1c was 8.8%. I told him his weight loss might be due to poorly controlled diabetes. Continued surveillance for malignancy is recommended. Blood pressure returned to normal and even elevated levels. His antihypertensive medication will be restarted with the exception of lisinopril. Lasix will be reduced to 20 mg daily and supplemental potassium will also be reduced. Anemia testing showed iron 62, transferrin saturation 24%, transferrin 188, ferritin 472, B12 334, and folate 5.3. His aspirin dose will be decreased to 81 mg every other day. Hemoglobin was stable at 12.1 on the day of discharge. He will be discharged home and follow with his PCP Dr. Billings within 1 week. - Time Spent with Patient Total time spent providing and/or coordinating discharge services: - Constitutional Vitals: Temp Pulse Resp BP Pulse Ox 98.9 F 90 18 190/118 98 12/03/17 06:48 02/08/18 06:57 12/03/17 06:48 12/03/17 06:57 12/03/17 06:48
[2017-12-03] MEDS ORDERED: Insulin LISPRO 300 UNITS/3 ML VIAL SQ SCH (21:00)
== END 2017-12-03 14:09 | disposition home or self-care (01) ==
LOC: EMEROOPIK 14:05 → INPPIK 14:05
PROVIDERS: ADMIT Internal Medicine; ATTEND Internal Medicine